=== PATIENT | male | born 1965 | race Caucasian/White ===

== ENCOUNTER 2016-12-24 03:22 | Observation (INO) | payer MEDICARE ==
--- NOTE | ~2016-12-24 | HP ---
History And Physical [id number] [place]. [address] NAME: MADHAVI CUEVAS : 63 STATUS : DIS Lucita PAT#: [id number] AGE: 51 ADM/REG DATE : 12/24/16 MR#: [id number] REPORT SERV DATE: 12/24/16 DICTATED BY: DATE: REPORT STATUS : Draft TRANSCRIBED BY: MODL DATE: 12/24/16 DATE OF ADMISSION: 12/24/2016 Primary care physician is Dr. Philippe Patel. His first appointment with him is this Friday. He also sees Pain Management, . CHIEF COMPLAINT: Chest pain. HISTORY OF PRESENT ILLNESS: This is a pleasant 51-year-old white make who developed chest pain and pressure 6/10 that radiated to his left arm after eating supper last night. During his chest pain event, he became short of breath and nauseous and very dizzy. He took Goody's Powder that lessened his pain, but did not resolve it completely. He then came to the emergency department where he reports his pain was completely resolved after aspirin and nitroglycerin. He does report to have some shortness of breath when lying flat and some edema to his lower extremities, which he reports as he has had since his back surgery. Currently, he does report soreness to his chest, but no chest pain or pressure or shortness of breath. The patient denies any personal history of myocardial infarction, stroke, DVT, or pulmonary embolus. The patient denies any recent fever, chills, palpitations, or any syncopal episodes. PAST MEDICAL HISTORY: Includes depression, GERD, and back pain. PAST SURGICAL HISTORY: He has had bilateral shoulder surgery due to spur. Artificial disk on his back, back fusion. Multiple left eye surgeries. Detached retina surgery x4. Cataract surgery. SOCIAL HISTORY: He is disabled and does not have a routine exercise plan. He is with one child. He is a current smoker. He smokes about a half a pack per day and smokes that much for 25 years. No alcohol use. No illicit drug use. FAMILY HISTORY: His mother has had hypertension, father hypertension and CVA. His brother has had an PA at the age of 56. REVIEW OF SYSTEMS: A 14-point review of systems was performed, significant for HPI. No other contributory diagnoses identified. ALLERGIES: INCLUDE CODEINE PHOSPHATE, REACTION ANGRY AND IRRITABLE. BUTALBITAL, REACTION ANGRY AND IRRITABLE. HOME MEDICATIONS: 1. Gabapentin 400 p.o. three times daily. 2. Bupropion ER 300 mg p.o. at bedtime. 3. Oxycodone 15 every four hours p.r.n. pain. 4. Nexium 20 p.o. at bedtime. History And Physical [address] [place]. [address] NAME: MADHAVI CUEVAS : 63 STATUS : DIS Lucita PAT#: [id number] AGE: 51 ADM/REG DATE : 12/24/16 MR#: [id number] REPORT SERV DATE: 12/24/16 DICTATED BY: DATE: REPORT STATUS : Draft TRANSCRIBED BY: LAURA DATE: 12/24/16 PHYSICAL EXAMINATION: GENERAL: Cooperative, in no apparent distress. HEENT: Head normocephalic, anicteric. Normal EOM. PERRLA. No xanthelasma. Nares patent. Moist mucous membranes. NECK: Trachea midline. No thyromegaly, JVD or bruits. CHEST: He has mild tenderness to palpation. RESPIRATORY: Clear to auscultation bilaterally anterior and posterior. Respirations even and unlabored. No wheezes, rhonchi or crackles. CARDIOVASCULAR: Regular rate and rhythm. No murmur, rub or gallop appreciated. No chest wall tenderness to palpation. ABDOMEN: Soft, nontender, nondistended, normal bowel sounds auscultated throughout. No masses or organomegaly. EXTREMITIES: Trace edema to bilateral lower extremities. DP/PT and radial pulses palpable bilaterally. No clubbing or cyanosis. SKIN: Warm, dry and intact. Normal turgor. No pallor or cyanosis. NEURO/PSYCH: Alert, oriented x3 with no acute distress. Affect appropriate to current situation. LABORATORY DATA: Troponin x2 less than 0.02. Sodium 144, potassium 4, BUN 12, creatinine 1.19, GFR 81, glucose 135, calcium 8.96, magnesium 2.1. White blood cells 8.4, hemoglobin 14.6, hematocrit 42.5, platelets 226. INR 1.0. EKG showed sinus teresa at 57 with LVH and inferolateral Q-waves that was done on 12/24/2016 at 0511 hours. Telemonitor shows sinus rhythm at 65. CT of the brain without contrast shows stable exam. No acute infarct or bleed is seen. Mild generalized widening of , but stable from 2014. ASSESSMENT AND PLAN: 1. Chest pain. Troponin x2 have been negative. We will keep the patient today. If low risk stress test or no ischemia noted, the patient may be discharged home. The patient will be asked to follow up with his PCP in one to two weeks with all the studies being sent to the office. If anything suggestive of ischemia, Cardiology referral would be initiated. 2. Dizziness, appears to have resolved completely. We will continue to monitor CT of the brain, stable exam. No acute findings noted. 3. Depression, appears stable. The patient does not appear depressed. He will continue to stay on Wellbutrin, follow up with PCP. 4. Gastroesophageal reflux disease. Denies any complaints. We will continue his Nexium. 5. Back pain, appears to be stable. We will continue his Neurontin and oxycodone. EKS/MODL History And Physical [address] [address] NAME: MADHAVI CUEVAS : 63 STATUS : DIS Lucita PAT#: [id number] AGE: 51 ADM/REG DATE : 12/24/16 MR#: [id number] REPORT SERV DATE: 12/24/16 DICTATED BY: DATE: REPORT STATUS : Draft TRANSCRIBED BY: LAURA DATE: 12/24/16 Susie Valenzuela APN / [id number] CC: Radha Montana, MSN, QUARRYING MANAGER-BC Dr. Philippe Patel,
[2016-12-24 01:35] LABS: BASOPHILS 0.6 %; BASOPHILS ABSOLUTE 0.05 10/3/uL (0.0-0.16); EOSINOPHILS 5.1 %; EOSINOPHILS ABSOLUTE 0.43 10/3/uL (0.0-0.53); HEMATOCRIT 42.5 % (40.0-51.0); HEMOGLOBIN 14.6 g/dL (13.6-17.8); IMMATURE GRANULOCYTES 0.1 %; IMMATURE GRANULOCYTES ABSOLUTE 0.01 10/3/uL (0.0-0.11); LYMPHOCYTES 40.6 %; LYMPHOCYTES ABSOLUTE 3.39 10/3/uL (0.67-4.30); MANUAL DIFF NO %; MEAN CORPUS HGB CONC 34.4 g/dL (32.0-36.0); MEAN CORPUSCULAR HEMOGLOB 32.3 pg (26.0-34.0); MEAN PLATELET VOLUME 10.3 fL (9.2-13.0); MONOCYTES 9.5 %; MONOCYTES ABSOLUTE 0.79 10/3/uL (0.21-1.20); NEUTROPHILS 44.1 %; NEUTROPHILS ABSOLUTE 3.68 10/3/uL (2.02-8.40); PLATELET COUNT 226 10/3/uL (150-400); RBC DISTRIBUTION WIDTH 12.6 % (12.0-16.0); RED CELL COUNT 4.52 10/6/uL (4.7-6.1); WHITE BLOOD CELLS 8.4 10/3/uL (4.5-10.5)
[2016-12-24 01:42] LABS: PARTIAL THROMBO TIME 30.7 SEC (22.5-37.2)
[2016-12-24 01:52] LABS: BUN (BLOOD UREA NITROGEN) 12 MG/DL (6-23); CALCIUM, SERUM 8.6 MG/DL (8.5-10.4); CHEST PAIN PROFILE TAT 0 Hrs 21 Mins; CHLORIDE, SERUM 113 MMOL/L (96-112); CO2 (CARBON DIOXIDE) 29 MMOL/L (24-34); CREATININE 1.19 MG/DL (0.70-1.30); GFR AFRICAN AMERICAN 81 ML/MIN (>=60); GFR NON AFRICAN AMERICAN 70 ML/MIN (>=60); GLUCOSE, SERUM 135 MG/DL (60-99); SODIUM, SERUM 144 MMOL/L (135-148); TROPONIN I <0.02 NG/ML (<0.05)
[2016-12-24] MEDS ORDERED: WELLXL300 PO (03:47)
[2016-12-24] MEDS ORDERED: NEUR400 PO (03:47)
[2016-12-24] MEDS ORDERED: NEXIUM20 M1 PO (03:48)
[2016-12-24] MEDS ORDERED: ROXICODONE15 MG PO (03:48)
== END 2016-12-24 13:38 | disposition home or self-care (01) ==
LOC: ER 03:22 → CDU1 03:37
PROVIDERS: Specialist
DX: R07.9 Chest pain, unspecified (principal); F32.9 Major depressive disorder, single episode, unspecified; K21.9 Gastro-esophageal reflux disease without esophagitis; E78.00 Pure hypercholesterolemia, unspecified; F17.210 Nicotine dependence, cigarettes, uncomplicated; Z98.890 Other specified postprocedural states; Z79.899 Other long term (current) drug therapy; Z88.5 Allergy status to narcotic agent; Z88.8 Allergy status to other drugs, medicaments and biological substances
CPT/HCPCS: 70450; 71020; 78452; 80048; 83735; 84484; 85025; 85610; 85730; 93005; 93017; 99285; A9270-GY; A9502; G0378; J0153